=== PATIENT | male | born 1995 | race African-American/Black ===

== ENCOUNTER 2021-01-21 16:33 | Inpatient (IN) ==
[2021-01-21] MEDS ORDERED: NALOXONE 0.4 MG/ML VIAL ONE (16:44)
[2021-01-21] MEDS ORDERED: NALOXONE 0.4 MG/ML VIAL IV STA (16:47)
[2021-01-21] MEDS ORDERED: LACTATED RINGERS 1,000 ML IV ONE (16:51)
[2021-01-21 17:02] LABS: ABG Base Excess -21.7 MMOL/L (-2.5-2.5); ABG HCO3 5.7 MMOL/L (20-26); ABG Oxygen Saturation 98.1 % (95-100); ABG PO2 141.5 MM HG (80-95); ABG TCO2 6.3 MMOL/L (23-27)
[2021-01-21 17:08] LABS: ABG PCO2 18.6 MM HG (35-48); ABG PH 7.108 (7.35-7.45)
[2021-01-21] MEDS ORDERED: LACTATED RINGERS 2,000 ML IV ONE (17:13)
[2021-01-21] MEDS ORDERED: STERILE WATER IV PRN (17:32)
[2021-01-21] MEDS ORDERED: INSULIN REGULAR 100 UNIT/ML IV ONE (17:32)
[2021-01-21] MEDS ORDERED: SODIUM CHLORIDE 0.9% 1,000 ML IV ONE ×3 (17:32→18:02)
[2021-01-21] MEDS ORDERED: ONDANSETRON 4 MG/2 ML VIAL IV PRN (17:32)
[2021-01-21] MEDS ORDERED: SODIUM BICARB IV PRN (17:32)
[2021-01-21] MEDS ORDERED: POTASSIUM CHLORIDE RIDER 10 MEQ/100 ML PREMIX IV PRN (17:32)
[2021-01-21] MEDS ORDERED: MAGNESIUM SULF RIDER 4 GM/100 ML PREMIX IV PRN (17:32)
[2021-01-21] MEDS ORDERED: SODIUM PHOSPHATE INJ 30 MMOL in SODIUM CHLORIDE 0.9% 250 ML IV PRN (17:32)
[2021-01-21] MEDS ORDERED: MAGNESIUM SULF RIDER 2 GM/50 ML PREMIX IV PRN (17:32)
[2021-01-21 17:36] LABS: Alanine Aminotransferase 25 U/L (16-61); Albumin 3.7 G/DL (3.4-5.0); Alkaline Phosphatase 116 U/L (45-117); Aspartate Amino Transferase 13 U/L (0-37); Blood Urea Nitrogen 98 MG/DL (7-18); Calcium 9.2 MG/DL (8.5-10.1); Carbon Dioxide 9 MMOL/L (21-32); Osmolality,Calculated 382.5 MOS/KG (273-304); Sodium 132 MMOL/L (136-145); Total Protein 6.9 G/DL (6.4-8.2)
[2021-01-21] MEDS ORDERED: DEXTROSE 50% 25 GM/50 ML SYRINGE IV PRN ×2 (17:41→17:42)
[2021-01-21 17:49] LABS: Estimated Glom Filtration Rate 0 ML/MIN
[2021-01-21 17:51] LABS: Glucose 1683 MG/DL (74-106); Potassium 7.6 MMOL/L (3.5-5.1)
[2021-01-21 17:53] LABS: INR 3.3
[2021-01-21 17:58] LABS: Basophils # 0.1 10*3/uL (0.0-0.2); Basophils % 0.3 % (0.0-0.8); Hematocrit 59.7 VOL% (42.0-52.0); Hemoglobin 16.7 GM/DL (14.0-18.0); Immature Granulocytes Absolute 1.42 #; Lymphocytes # 3.2 10*3/uL (1.4-4.0); Lymphocytes % 11.2 % (21.2-54.2); Mean Corpuscular Volume 101.4 FL (87-102); Mean Platelet Volume 12.3 FL (9.6-12.0); Monocytes % 6.8 % (1.7-12.7); Neutrophils % 76.7 % (38.7-73.9); Platelet Count 242 T/CUMM (130-400); Red Blood Count 5.89 MC/CUMM (3.8-5.5); Red Cell Distribution Width 14.3 % (9.3-17.3); White Blood Count 28.2 T/CUMM (4-12)
[2021-01-21] MEDS ORDERED: CALCIUM GLUCONATE 1,000 MG in SODIUM CHLORIDE 0.9% 100 ML IV ONE (17:58)
[2021-01-21 18:00] LABS: PT Patient Result 34.3 SECS (10.5-12.0)
[2021-01-21] MEDS ORDERED: ENOXAPARIN 30 MG/0.3 ML SYRINGE SUBCUT SCH (18:00)
[2021-01-21] MEDS ORDERED: SODIUM BICARBONATE 50 MEQ/50 ML VIAL IV STA ×2 (18:01→21:25)
[2021-01-21] MEDS ORDERED: INSULIN REGULAR 100 UNIT/ML IV STA (18:05)
[2021-01-21] MEDS ORDERED: SODIUM POLYSTYRENE SULFATE 15 GM/60 ML BOTTLE RECTAL STA (18:19)
[2021-01-21 18:33] LABS: Bilirubin,Urine Negative (Negative); Blood, Urine Moderate mg/dL (Negative); Glucose,Urine (UA) >=500 mg/dL (Negative); Ketones,Urine 20 mg/dL (Negative); Mucus,Urine Occasional /LPF (Occasional); Nitrite,Urine Negative (Negative); Protein,Urine 100 MG/DL; RBC,Urine <1 /HPF (0-4); Squamous Epithelial Cell,Urine Occasional /HPF (0-10); Urine Appearance CLEAR (Clear); Urine Color Yellow (Yellow); Urine Specific Gravity 1.027 (1.001-1.035); Urine Urobilinogen < 2.0 EU/DL (0.2-1.0)
[2021-01-21 18:59] LABS: Barbiturates Screen,Urine Negative (Negative); Benzodiazepines Screen,Urine Negative (Negative); Cannabinoid Screen,Urine Negative (Negative); Opiate Screen,Urine Negative (Negative); Phencyclidine Screen,Urine Negative (Negative)
[2021-01-21 19:23] LABS: Lymphocytes 6 % (20-55); Metamyelocytes 3 %; Segmented Neutrophils 91 % (50-85); Total Cells Counted 100
[2021-01-21 19:24] LABS: Atypical Lymphocytes Few
[2021-01-21 20:10] LABS: Calcium 8.3 MG/DL (8.5-10.1); Osmolality,Calculated 384.3 MOS/KG (273-304); Potassium 5.3 MMOL/L (3.5-5.1)
[2021-01-21] MEDS: SODIUM CHLORIDE 0.9% 1,000 ML IV SCH (21:00)
[2021-01-21] MEDS: INSULIN REGULAR DRIP 100 ML IV SCH (21:30)
[2021-01-21 22:57] LABS: Calcium 8.3 MG/DL (8.5-10.1); Osmolality,Calculated 381.6 MOS/KG (273-304); Potassium 4.9 MMOL/L (3.5-5.1)
[2021-01-21] MEDS ORDERED: SODIUM CHLORIDE 0.9% 1,000 ML IV SCH (23:00)
[2021-01-22] MEDS: SODIUM CHLORIDE 0.9% 1,000 ML IV SCH (00:42)
[2021-01-22] MEDS: LACTULOSE 20 GM/30 ML UDCUP PO SCH ×3 (00:51→22:00)
[2021-01-22] MEDS ORDERED: NOREPINEPHRINE 4 MG/4 ML VIAL IV ONE (02:02)
[2021-01-22] MEDS: NOREPINEPHRINE 8 MG in SODIUM CHLORIDE 0.9% 242 ML IV PRN ×2 (02:06→12:50)
[2021-01-22 02:13] LABS: Basophils # 0.1 10*3/uL (0.0-0.2); Basophils % 0.2 % (0.0-0.8); Hematocrit 49.8 VOL% (42.0-52.0); Immature Granulocytes % 3.3 %; Immature Granulocytes Absolute 0.82 #; Lymphocytes # 2.4 10*3/uL (1.4-4.0); Lymphocytes % 9.9 % (21.2-54.2); Mean Corpuscular HGB Conc 32.1 GM/DL (32-36); Mean Corpuscular Volume 87.7 FL (87-102); Mean Platelet Volume 11.5 FL (9.6-12.0); Monocytes % 4.8 % (1.7-12.7); Neutrophils % 81.8 % (38.7-73.9); Platelet Count 218 T/CUMM (130-400); Red Blood Count 5.68 MC/CUMM (3.8-5.5); Red Cell Distribution Width 13.7 % (9.3-17.3); White Blood Count 24.6 T/CUMM (4-12)
[2021-01-22 02:30] LABS: Calcium 8.1 MG/DL (8.5-10.1); Osmolality,Calculated 381.9 MOS/KG (273-304); Potassium 4.9 MMOL/L (3.5-5.1)
[2021-01-22 02:33] LABS: Lymphocytes 3 % (20-55); Platelet Estimate Normal; Segmented Neutrophils 95 % (50-85); Total Cells Counted 100
[2021-01-22 02:43] LABS: Risk Ratio 8.42; VLDL Cholesterol 98.6 MG/DL
[2021-01-22] MEDS: SODIUM CHLORIDE 0.45% 1,000 ML IV SCH ×4 (03:38→19:06)
[2021-01-22 04:06] LABS: ABG Base Excess -9.1 MMOL/L (-2.5-2.5); ABG HCO3 15.8 MMOL/L (20-26); ABG Oxygen Saturation 98.1 % (95-100); ABG PCO2 32.3 MM HG (35-48); ABG PH 7.308 (7.35-7.45); ABG PO2 120.8 MM HG (80-95); ABG TCO2 16.8 MMOL/L (23-27)
[2021-01-22 07:01] LABS: Calcium 8.6 MG/DL (8.5-10.1); Osmolality,Calculated 373.5 MOS/KG (273-304)
[2021-01-22] MEDS: INSULIN REGULAR DRIP 100 ML IV SCH (08:35)
[2021-01-22 08:38] LABS: ABG Base Excess -5.1 MMOL/L (-2.5-2.5); ABG HCO3 20.3 MMOL/L (20-26); ABG Oxygen Saturation 96.5 % (95-100); ABG PH 7.371 (7.35-7.45); ABG PO2 80.8 MM HG (80-95); ABG TCO2 15.9 MMOL/L (23-27); Glucose Heart Surgery 513 MG/DL (74-106); Hematocrit Heart Surgery 51.6 PERCENT (42-52); Hemoglobin Heart Surgery 16.9 G/DL (14.0-18.0); Potassium Heart/CVR 3.9 MMOL/L (3.5-5.1)
[2021-01-22] MEDS ORDERED: LACTATED RINGERS 1,000 ML IV ONE ×3 (08:59→09:32)
[2021-01-22] MEDS ORDERED: MORPHINE 2 MG/1 ML SYRINGE IV ONE (08:59)
[2021-01-22] MEDS ORDERED: PANTOPRAZOLE 40 MG TABLET PO SCH (09:00)
[2021-01-22] MEDS: PANTOPRAZOLE 40 MG VIAL IV SCH ×2 (09:18→22:00)
[2021-01-22 09:51] LABS: PT Patient Result 11.4 SECS (10.5-12.0); Partial Thromboplastin Time 23.1 SECS (23.8-32.1)
[2021-01-22 09:58] LABS: Calcium 8.5 MG/DL (8.5-10.1); Osmolality,Calculated 370.9 MOS/KG (273-304); Potassium 3.8 MMOL/L (3.5-5.1)
[2021-01-22 11:53] LABS: Alanine Aminotransferase 23 U/L (16-61); Albumin 3.2 G/DL (3.4-5.0); Alkaline Phosphatase 101 U/L (45-117); Aspartate Amino Transferase 24 U/L (0-37); Bilirubin,Indirect 0.3 MG/DL (0.0-1.0); Bilirubin,Total < 0.39 MG/DL (0.20-1.00); Total Protein 5.9 G/DL (6.4-8.2)
[2021-01-22] MEDS ORDERED: GLUCAGON 1 MG VIAL IM PRN (11:56)
[2021-01-22] MEDS: METOCLOPRAMIDE 10 MG/2 ML VIAL IV SCH ×2 (12:05→19:05)
[2021-01-22] MEDS ORDERED: DEXTROSE 50% 25 GM/50 ML SYRINGE IV PRN (12:22)
[2021-01-22] MEDS: MEROPENEM 500 MG in SODIUM CHLORIDE 0.9% 100 ML IV SCH (13:32)
[2021-01-22] MEDS: INSULIN LISPRO 100 UNIT/ML SUBCUT SCH ×3 (13:32→23:20)
[2021-01-22 13:33] LABS: Calcium 8.4 MG/DL (8.5-10.1); Osmolality,Calculated 357.5 MOS/KG (273-304); Potassium 3.7 MMOL/L (3.5-5.1)
[2021-01-22 14:31] LABS: Hemoglobin 14.7 GM/DL (14.0-18.0)
[2021-01-22 14:51] LABS: Bacteria,Urine Occasional /HPF (Few); Bilirubin,Urine Negative (Negative); Blood, Urine Large mg/dL (Negative); Glucose,Urine (UA) 50 mg/dL (Negative); Ketones,Urine 20 mg/dL (Negative); Mucus,Urine Occasional /LPF (Occasional); Nitrite,Urine Negative (Negative); Protein,Urine 100 MG/DL; RBC,Urine 26 /HPF (0-4); Squamous Epithelial Cell,Urine Occasional /HPF (0-10); Uric Acid Crystals,Urine Few /HPF (<1); Urine Appearance CLOUDY (Clear); Urine Color Yellow (Yellow); Urine Specific Gravity 1.021 (1.001-1.035); Urine Urobilinogen < 2.0 EU/DL (0.2-1.0)
[2021-01-22] MEDS: MORPHINE 2 MG/1 ML SYRINGE IV PRN (17:20)
[2021-01-22] MEDS ORDERED: SODIUM CHLORIDE 0.45% 1,000 ML IV ONE (17:41)
[2021-01-22] MEDS ORDERED: METOPROLOL TARTRATE 5 MG/5 ML VIAL IV ONE (17:41)
[2021-01-22 17:59] LABS: Calcium 8.3 MG/DL (8.5-10.1); Osmolality,Calculated 351.8 MOS/KG (273-304); Potassium 3.4 MMOL/L (3.5-5.1)
[2021-01-22] MEDS: POTASSIUM CHLORIDE RIDER 20 MEQ/100 ML PREMIX IV PRN ×2 (19:05→21:05)
[2021-01-22] MEDS ORDERED: ATORVASTATIN 40 MG TABLET PO SCH (21:00)
[2021-01-22 23:14] LABS: Calcium 7.7 MG/DL (8.5-10.1); Osmolality,Calculated 343.2 MOS/KG (273-304); Potassium 3.6 MMOL/L (3.5-5.1)
[2021-01-23] MEDS: MEROPENEM 500 MG in SODIUM CHLORIDE 0.9% 100 ML IV SCH ×2 (01:55→13:27)
[2021-01-23] MEDS: METOCLOPRAMIDE 10 MG/2 ML VIAL IV SCH ×4 (02:00→18:24)
[2021-01-23 06:11] LABS: Basophils % 0.3 % (0.0-0.8); Eosinophils # 0.1 10*3/uL (0.0-0.87); Eosinophils % 0.4 % (0.00-10.9); Hematocrit 41.2 VOL% (42.0-52.0); Hemoglobin 13.3 GM/DL (14.0-18.0); Immature Granulocytes % 0.6 %; Immature Granulocytes Absolute 0.09 #; Lymphocytes # 1.9 10*3/uL (1.4-4.0); Mean Corpuscular HGB Conc 32.3 GM/DL (32-36); Mean Corpuscular Volume 86.4 FL (87-102); Mean Platelet Volume 11.5 FL (9.6-12.0); Monocytes % 11.3 % (1.7-12.7); Neutrophils % 75.4 % (38.7-73.9); Platelet Count 169 T/CUMM (130-400); Red Blood Count 4.77 MC/CUMM (3.8-5.5); Red Cell Distribution Width 14.1 % (9.3-17.3); White Blood Count 15.7 T/CUMM (4-12)
[2021-01-23 06:28] LABS: Calcium 7.5 MG/DL (8.5-10.1); Osmolality,Calculated 335.5 MOS/KG (273-304); Potassium 3.8 MMOL/L (3.5-5.1)
[2021-01-23 06:31] LABS: Risk Ratio 5.29
[2021-01-23 06:58] LABS: Band Neutrophils 3 % (0-10); Eosinophils 1 % (0-10); Lymphocytes 12 % (20-55); Platelet Estimate Adequate; Segmented Neutrophils 81 % (50-85); Total Cells Counted 100
[2021-01-23 06:59] LABS: Atypical Lymphocytes Few
[2021-01-23] MEDS ORDERED: SODIUM CHLORIDE 0.45% 1,000 ML IV SCH (07:30)
[2021-01-23] MEDS ORDERED: METOPROLOL TARTRATE 5 MG/5 ML VIAL IV PRN (07:52)
[2021-01-23] MEDS ORDERED: LACTATED RINGERS 1,000 ML IV ONE (08:09)
[2021-01-23 08:10] LABS: ABG HCO3 13.3 MMOL/L (20-26); ABG Oxygen Saturation 97.1 % (95-100); ABG PCO2 23.1 MM HG (35-48); ABG PH 7.377 (7.35-7.45); ABG PO2 100.4 MM HG (80-95)
[2021-01-23] MEDS: PANTOPRAZOLE 40 MG VIAL IV SCH ×2 (08:33→20:36)
[2021-01-23] MEDS: INSULIN LISPRO 100 UNIT/ML SUBCUT SCH ×6 (08:33→23:39)
[2021-01-23] MEDS: INSULIN GLARGINE 100 UNIT/ML SUBCUT SCH (08:33)
[2021-01-23] MEDS: LACTULOSE 20 GM/30 ML UDCUP PO SCH ×2 (08:34→20:36)
[2021-01-23] MEDS: LACTATED RINGERS 1,000 ML IV SCH ×3 (08:34→18:30)
[2021-01-23] MEDS ORDERED: SODIUM BICARBONATE 50 MEQ/50 ML VIAL IV ONE (09:30)
[2021-01-23] MEDS: MORPHINE 2 MG/1 ML SYRINGE IV PRN (10:03)
[2021-01-23 15:08] LABS: Calcium 7.4 MG/DL (8.5-10.1); Osmolality,Calculated 329.6 MOS/KG (273-304); Potassium 3.5 MMOL/L (3.5-5.1)
[2021-01-23] MEDS: POTASSIUM CHLORIDE RIDER 20 MEQ/100 ML PREMIX IV PRN ×2 (16:30→23:27)
[2021-01-23] MEDS: ATORVASTATIN 20 MG TABLET PO SCH (20:36)
[2021-01-23 21:10] LABS: Calcium 7.8 MG/DL (8.5-10.1); Osmolality,Calculated 321.9 MOS/KG (273-304); Potassium 3.6 MMOL/L (3.5-5.1)
[2021-01-24 00:03] LABS: Calcium 7.9 MG/DL (8.5-10.1); Osmolality,Calculated 322.7 MOS/KG (273-304); Potassium 3.5 MMOL/L (3.5-5.1)
[2021-01-24] MEDS: METOCLOPRAMIDE 10 MG/2 ML VIAL IV SCH ×4 (00:23→18:43)
[2021-01-24] MEDS: MEROPENEM 500 MG in SODIUM CHLORIDE 0.9% 100 ML IV SCH ×2 (00:30→13:45)
[2021-01-24] MEDS: LACTULOSE 20 GM/30 ML UDCUP PO SCH ×2 (08:30→20:30)
[2021-01-24] MEDS: PANTOPRAZOLE 40 MG VIAL IV SCH (08:33)
[2021-01-24] MEDS: LACTATED RINGERS 1,000 ML IV SCH ×3 (10:35→16:21)
[2021-01-24] MEDS: INSULIN LISPRO 100 UNIT/ML SUBCUT SCH ×5 (13:26→20:30)
[2021-01-24] MEDS: INSULIN GLARGINE 100 UNIT/ML SUBCUT SCH (13:27)
[2021-01-24] MEDS ORDERED: POTASSIUM CHLORIDE 20 MEQ TABLET PO PRN (13:37)
[2021-01-24] MEDS ORDERED: ERGOCALCIFEROL 50,000 UNIT CAPSULE PO SCH (14:00)
[2021-01-24 15:06] LABS: Basophils % 0.2 % (0.0-0.8); Eosinophils # 0.1 10*3/uL (0.0-0.87); Eosinophils % 0.6 % (0.00-10.9); Hemoglobin 12.5 GM/DL (14.0-18.0); Immature Granulocytes % 0.5 %; Immature Granulocytes Absolute 0.08 #; Lymphocytes # 1.8 10*3/uL (1.4-4.0); Lymphocytes % 11.1 % (21.2-54.2); Mean Corpuscular HGB Conc 32.1 GM/DL (32-36); Mean Corpuscular Volume 87.4 FL (87-102); Mean Platelet Volume 11.4 FL (9.6-12.0); Monocytes % 7.2 % (1.7-12.7); Neutrophils % 80.4 % (38.7-73.9); Platelet Count 118 T/CUMM (130-400); Red Blood Count 4.46 MC/CUMM (3.8-5.5); Red Cell Distribution Width 14.6 % (9.3-17.3); White Blood Count 15.8 T/CUMM (4-12)
[2021-01-24 15:50] LABS: Albumin 2.4 G/DL (3.4-5.0); Bilirubin,Total 0.92 MG/DL (0.20-1.00); Calcium 8.2 MG/DL (8.5-10.1); Potassium 3.5 MMOL/L (3.5-5.1); Total Protein 5.3 G/DL (6.4-8.2)
[2021-01-24 17:42] LABS: Basophils % 0.2 % (0.0-0.8); Eosinophils # 0.1 10*3/uL (0.0-0.87); Eosinophils % 0.9 % (0.00-10.9); Hemoglobin 11.5 GM/DL (14.0-18.0); Immature Granulocytes % 0.6 %; Immature Granulocytes Absolute 0.09 #; Lymphocytes # 1.9 10*3/uL (1.4-4.0); Lymphocytes % 13.9 % (21.2-54.2); Mean Corpuscular HGB Conc 31.9 GM/DL (32-36); Mean Corpuscular Volume 88.7 FL (87-102); Mean Platelet Volume 11.8 FL (9.6-12.0); Monocytes % 6.4 % (1.7-12.7); Platelet Count 105 T/CUMM (130-400); Red Blood Count 4.06 MC/CUMM (3.8-5.5); Red Cell Distribution Width 14.7 % (9.3-17.3)
[2021-01-24 19:05] LABS: Band Neutrophils 1 % (0-10); Hypochromasia 1+; Lymphocytes 9 % (20-55); Segmented Neutrophils 81 % (50-85); Total Cells Counted 100
[2021-01-24 19:06] LABS: Platelet Estimate Adequate
[2021-01-24 19:26] LABS: Segmented Neutrophils 76 % (50-85)
[2021-01-24 19:27] LABS: Lymphocytes 16 % (20-55); Platelet Estimate Adequate; Total Cells Counted 100
[2021-01-24] MEDS: ATORVASTATIN 20 MG TABLET PO SCH (20:30)
[2021-01-24] MEDS: PANTOPRAZOLE 40 MG TABLET PO SCH (20:30)
[2021-01-25] MEDS: LACTATED RINGERS 1,000 ML IV SCH ×2 (00:56→13:43)
[2021-01-25] MEDS: METOCLOPRAMIDE 10 MG/2 ML VIAL IV SCH ×3 (00:59→13:45)
[2021-01-25 06:12] LABS: Basophils % 0.2 % (0.0-0.8); Eosinophils # 0.3 10*3/uL (0.0-0.87); Eosinophils % 1.8 % (0.00-10.9); Hematocrit 36.8 VOL% (42.0-52.0); Hemoglobin 11.9 GM/DL (14.0-18.0); Immature Granulocytes % 0.5 %; Immature Granulocytes Absolute 0.07 #; Lymphocytes # 2.2 10*3/uL (1.4-4.0); Lymphocytes % 14.4 % (21.2-54.2); Mean Corpuscular HGB Conc 32.3 GM/DL (32-36); Mean Platelet Volume 11.7 FL (9.6-12.0); Monocytes % 8.1 % (1.7-12.7); Platelet Count 91 T/CUMM (130-400); Red Blood Count 4.18 MC/CUMM (3.8-5.5); Red Cell Distribution Width 14.6 % (9.3-17.3); White Blood Count 15.3 T/CUMM (4-12)
[2021-01-25 06:34] LABS: Albumin 2.4 G/DL (3.4-5.0); Bilirubin,Total 0.9 MG/DL (0.20-1.00); Calcium 8.7 MG/DL (8.5-10.1); Osmolality,Calculated 312.4 MOS/KG (273-304); Potassium 4.1 MMOL/L (3.5-5.1); Total Protein 5.6 G/DL (6.4-8.2)
[2021-01-25 06:36] LABS: Band Neutrophils 2 % (0-10); Eosinophils 2 % (0-10); Hypochromasia 1+; Lymphocytes 12 % (20-55); Segmented Neutrophils 80 % (50-85); Total Cells Counted 100
[2021-01-25 06:37] LABS: Microcytosis Slight; Platelet Estimate Decreased
[2021-01-25 06:38] LABS: Risk Ratio 5.58; VLDL Cholesterol 25.8 MG/DL
[2021-01-25] MEDS ORDERED: SODIUM CHLORIDE 23.4% CONC INJ 38.5 MEQ in STERILE WATER INJ 1,000 ML IV SCH (09:00)
[2021-01-25] MEDS ORDERED: INSULIN GLARGINE 100 UNIT/ML SUBCUT SCH (09:00)
[2021-01-25] MEDS ORDERED: SODIUM CHLORIDE 0.45% 1,000 ML IV SCH (09:00)
[2021-01-25] MEDS: PANTOPRAZOLE 40 MG TABLET PO SCH (09:23)
[2021-01-25] MEDS: INSULIN LISPRO 100 UNIT/ML SUBCUT SCH ×2 (09:24→13:45)
[2021-01-25 11:48] VITALS: BP 102/51
[2021-01-25] MEDS: LACTULOSE 20 GM/30 ML UDCUP PO SCH (13:44)
== END 2021-01-25 12:25 | disposition left against medical advice (07) | DRG 637 ==
LOC: N.ED 16:33 → SUATTDRO 17:32 → N.EDINP 17:32 → N.CC 18:56
PROVIDERS: ADMIT Family Medicine; ATTEND Internal Medicine